=== PATIENT | female | born 1985 | race Caucasian/White ===

== ENCOUNTER 2018-12-31 12:01 | Inpatient (IN) | payer MEDICAID ==
[~2018-12-31] VITALS: Ht 170.2 cm; Wt 66.2 kg
[2018-12-31 12:42] LABS: Urine Bacteria FEW /hpf (None Seen); Urine Blood 2+ /uL (Negative); Urine Specific Gravity 1.015 (1.001-1.035); Urine WBC 2 /hpf (0 - 5)
[2018-12-31 16:32] LABS: Basophils # (auto) 0.1 uL; Basophils % (auto) 0.6 % (0.0-2.0); Eosinophils # (auto) 0.4 uL; Eosinophils % (auto) 4.1 % (0.0-7.0); Hematocrit 42.2 % (36.0-46.0); Hemoglobin 14.2 g/dL (12.2-16.2); Lymphocytes # (auto) 1.9 uL; Lymphocytes % (auto) 20.1 % (10.0-50.0); Mean Corpuscular Hemoglobin 31.8 pg (28.0-32.0); Mean Corpuscular Hgb Conc. 33.7 g/dL (32.0-36.0); Mean Corpuscular Volume 94.4 fL (80.0-100.0); Monocytes # (auto) 0.5 uL; Monocytes % (auto) 5.3 % (0.0-12.0); Neutrophils # (auto) 6.5 uL; Neutrophils % (auto) 69.9 % (37.0-80.0); Nucleated Red Blood Cells % 0.1 %; Platelet Count (auto) 233 10^3/uL (140-450); Red Blood Cells 4.47 10^6/uL (4.0-5.20); Red Cell Distribution Width 12.3 % (11.8-14.3); White Blood Cell 9.3 10^3/uL (4.4-10.8)
[2018-12-31 16:45] LABS: INR 1.01 (0.9-1.15); Partial Thromboplastin Time 28.9 sec (23.64-32.05)
[2018-12-31 16:49] LABS: Albumin 4.5 g/dL (3.4-5.0); Calcium 9.1 mg/dL (8.5-10.1); Potassium 3.3 mmol/L (3.5-5.1)
[2018-12-31 16:52] LABS: BUN/Creatinine Ratio 15.1; Bilirubin, Total 0.9 mg/dL (0.2-1.0); Total Protein 8.4 g/dL (6.4-8.2)
[2018-12-31] MEDS ORDERED: fentaNYL CITRATE 100 MCG/2 ML VL ONE ×2 (21:02→23:32)
[2018-12-31] MEDS ORDERED: MIDAZOLAM HCL 1MG/1ML-2 ML VIAL ONE (21:02)
[2018-12-31] MEDS ORDERED: ceFAZolin 1GM/50ML 50 ML IV ONE (21:55)
[2018-12-31] MEDS ORDERED: GLYCOPYRROLATE 0.2 MG/ML 1ML VIAL IV ONE (22:05)
[2018-12-31] MEDS ORDERED: NEOSTIGMINE 1 MG/ML INJ (10mg/10ML VIAL) IV ONE (22:05)
[2018-12-31] MEDS ORDERED: ROCURONIUM 10MG/ML 10ML VIAL IV ONE (22:12)
[2019-01-01] MEDS ORDERED: ePHEDrine SULFATE 50 MG/ML AMP IV PRN (00:45)
[2019-01-01] MEDS ORDERED: HYDROmorphone HCL 2 MG/ML VL IV PRN (00:45)
[2019-01-01] MEDS ORDERED: hydrALAZINE HCL 20 MG/ML VL IV PRN (00:45)
[2019-01-01] MEDS ORDERED: ONDANSETRON HCL 4 MG/2 ML VIAL IV PRN (00:45)
[2019-01-01] MEDS: HYDROmorphone HCL 2 MG/ML VL IV PRN ×2 (01:10→01:20)
[2019-01-01] MEDS ORDERED: DOCUSATE SOD 100 MG CAP PO PRN (01:15)
[2019-01-01] MEDS ORDERED: RHO (D) IMMUNE GLOBULIN 300 MCG INJ IM PRN (01:15)
[2019-01-01] MEDS ORDERED: HYDROcodone-ACET 5/325MG TAB PO PRN ×2 (01:15)
[2019-01-01] MEDS ORDERED: BISACODYL 10 MG RECT SUPP PR PRN (01:15)
[2019-01-01] MEDS ORDERED: ACETAMINOPHEN IV 1000 MG/100ML (10MG/ML) IV PRN (01:15)
[2019-01-01 01:29] LABS: Hematocrit 39.1 % (36.0-46.0); Hemoglobin 13.1 g/dL (12.2-16.2)
[2019-01-01 01:45] VITALS: BP 113/77
--- NOTE | 2019-01-01 01:45 | NUR ---
ADMIT FROM OR PATIENT IS STATUS POST LAPROSCOPIC SALPINGECTOMY. PATIENT IS ALERT AND ORIENTED X4. PATIENT IS IN BED, BED IS LOCKED AT LOWEST POSITION, BED RAILS UP X2, HEAD OF BED IS UP >30 DEGREES FOR SAFETY PRECAUTIONS. PATIENT PRESENTS TO FLOOR WITH 3 INCISIONS AT THE ABDOMEN, WITH ADHERENT DRESSINGS. PATIENT HAS PATEL. SCANT DRY BLOOD TO VAGINAL AREA IS PRESENT; CLEANED AND WILL CONTINUE TO MONITOR. IS AT BEDSIDE AND HELPS ANSWER ADMISSIONS QUESTIONS.
[2019-01-01 01:47] LABS: Albumin 3.9 g/dL (3.4-5.0); BUN/Creatinine Ratio 10.7; Calcium 8.1 mg/dL (8.5-10.1); Potassium 3.4 mmol/L (3.5-5.1)
[2019-01-01 01:50] LABS: Bilirubin, Total 0.7 mg/dL (0.2-1.0); Total Protein 6.8 g/dL (6.4-8.2)
--- NOTE | 2019-01-01 03:30 | NUR ---
VAGINAL BLEEDING SCANT AMOUNT OF FRESH BLOOD. WIPED CLEAN. WILL CONTINUE TO MONITOR. PATIENT IS RESTING COMFORTABLE IN BED. PATEL IS DRAINING PROPERLY.
--- NOTE | 2019-01-01 05:20 | NUR ---
ROUNDS PATIENT IS RESTING COMFORTABLE IN BED. NO BLEEDING AT KAS[place] AREA AT THIS TIME. NO BLEEDING AT INCISION SITES. BINDER ON. WILL CONTINUE TO MONITOR. NO S/SX OF DISTRESS OR SOB.
[2019-01-01 06:01] VITALS: BP 108/84
[2019-01-01] MEDS: SIMETHICONE 80 MG CHEWABLE TABLET PO SCH ×2 (06:38→12:30)
--- NOTE | 2019-01-01 08:00 | NUR ---
Opening Shift Note Assumed care of patient, awake and alert. No S/S of distress/SOB, 6/10 abdominal incision pain. S/P diagnostic laparoscopy and right salpingectomy. With 3 small incisions on the abdominal dry and intact. Reapplied abdominal binder. With minimal lochial discharge. Perineal wash done. Instructed on POC and to call for assist PRN, will continue to monitor for changes Q1hr and PRN.
[2019-01-01] MEDS ORDERED: IOHEXOL 300 MG/ML 100ML BOTTLE IJ ONE (08:10)
[2019-01-01 08:19] VITALS: BP 101/59
[2019-01-01] MEDS ORDERED: BALS750C6 PO (09:51)
[2019-01-01] MEDS ORDERED: DOCUSATE CALCIUM 240 MG CAP PO SCH (10:00)
[2019-01-01 12:50] VITALS: BP 101/60
--- NOTE | 2019-01-01 14:30 | NUR ---
Dr. Tomas at bedside, patient was advised. Orders received. For discharge home today and follow up in 2 weeks.
[2019-01-01 14:48] VITALS: BP 101/60
--- NOTE | 2019-01-01 15:00 | NUR ---
Hooker catheter removed. Patient started walking, tolerated well.
--- NOTE | 2019-01-01 16:15 | NUR ---
Patient able to urinate post Hooker catheter removal.
--- NOTE | 2019-01-01 16:27 | NUR ---
Discharge instructions given as ordered. Encourage to follow up with OB/GYNE-Dr. Tomas on 01/16/19 at 8:45am as instructed. Patient given informations about Dr. Tucker to follow up but first, patient needs to change IEHP to Dr. Tucker before making appointment. Cornelia Garcia RN continuum of manager critical care was at the bedside and explained the process. All questions and concerns addressed. Patient verbalized understanding. Medication reconciliation form completed and copy given to patient. IV removed with catheter intact, pressure dressing applied. Patient taken to vehicle via wheelchair with all personal belongings, accompanied by staff and family member. No distress noted at time of departure.
== END 2019-01-01 16:30 | disposition home or self-care (01) | DRG 545 ==
LOC: ER 12:06 → OVERFLOW 12:07 → WEST WING 22:37
PROVIDERS: ADMIT Specialist; ATTEND Specialist
PROC: 0UB54ZZ Excision of Right Fallopian Tube, Percutaneous Endoscopic Approach (ICD-10-PCS; principal; 2019-01-01)
PROC: 10T24ZZ Resection of Products of Conception, Ectopic, Percutaneous Endoscopic Approach (ICD-10-PCS; 2019-01-01)
DX: O00.101 Right tubal pregnancy without intrauterine pregnancy (principal); O26.851 Spotting complicating pregnancy, first trimester
CPT/HCPCS: 36415; 74177; 76801; 80053; 81001; 81025; 84702; 85014; 85018; 85025; 85610; 85730; 86850; 86900; 86901; 96374; 96375; G0378; J0131; J0690; J2250